=== PATIENT | male | born 1975 | race Caucasian/White ===

== ENCOUNTER 2019-10-02 03:07 | Inpatient (IN) | payer SELFPAY ==
[~2019-10-02] VITALS: Ht 190.5 cm; Wt 89.5 kg
--- NOTE | 2019-10-02 03:16 | NUR ---
PT BIB EMS. PT REPORTS TAKING 50 PILLS OF NYQUIL AT 8PM 9DEC19. PT'S MOTHER FOUND PT PASSED OUT IN THEIR KITCHEN. EMS REPORTS FINDING APPX 20 OPENED PILL PACKETS. PT REPORTS LIFE HAS BEEN HARD THIS LAST YEAR AND HE DOESN'T WANT TO DEAL WITH IT ANYMORE. REPORTS CURRENT STOMACH PAIN AND HX OF METH USE. PT'S BELONGINGS SECURED IN 1 OF 1 BAGS IN LOCKER, KNIFE REMOVED FROM PT BELONGINGS AND GIVEN TO [facility] SECURITY. PT PLACED ON ALL MONITORING, BED IN LOW POSITION, 2 RAILS RAISED.
[2019-10-02 03:27] LABS: BASOPHILS # (AUTO) 0.04 x10^3/uL (0-0.1); BASOPHILS % (AUTO) 0 % (0-1); EOSINOPHILS # (AUTO) 0.15 x10^3/uL (0-0.4); EOSINOPHILS % (AUTO) 1 % (1-7); LYMPHOCYTES # (AUTO) 4.33 x10^3/uL (1-3.4); LYMPHOCYTES % (AUTO) 40 % (22-44); MD NO; MEAN CORPUSCULAR HEMOGLOBIN 33.7 pg (27.5-34.5); MEAN CORPUSCULAR HGB CONC 33.7 g/dL (33.2-36.2); MEAN PLATELET VOLUME 7.5 fL (7.4-10.4); MONOCYTES % (AUTO) 7 % (2-9); NEUTROPHILS # (AUTO) 5.57 x10^3/uL (1.8-6.8); NEUTROPHILS % (AUTO) 52 % (42-75); PLATELET COUNT 436 x10^3/uL (130-400); RED BLOOD COUNT 4.88 x10^6/uL (4.38-5.82); RED CELL DISTRIBUTION WIDTH 13.4 % (9.4-14.8)
[2019-10-02] MEDS ORDERED: SODIUM CHLORIDE 0.9% 1,000ML IVBOLUS ONE (03:30)
[2019-10-02] MEDS ORDERED: SODIUM CHLORIDE FLUSH 10ML SYR IVF ONE (03:30)
[2019-10-02 03:37] LABS: ALANINE AMINOTRANSFERASE 41 U/L (12-78); ANION GAP 6 mmol/L (5-15); CALCIUM 8.7 mg/dL (8.5-10.1); CHLORIDE 108 mmol/L (98-107); CREATININE 1.04 mg/dL (0.7-1.3)
--- NOTE | 2019-10-02 03:39 | NUR ---
Patient refused to give details about the method of how to commit suicide. He did state, "if you want something to put down, you can say I took some pills and it didn't work." Patient states he did not want to kill himself tonight but he did not want to deal with things anymore because he can't get his life right. Patient is has slurred speech and is slow to respond. He is AAOx4.
[2019-10-02 03:40] LABS: ALKALINE PHOSPHATASE 82 U/L (45-117); BILIRUBIN,TOTAL 1.5 mg/dL (0.2-1.0); INTERNATIONAL NORMALIZED RATIO 1.08 (0.93-1.1); PROTHROMBIN TIME 11.3 Seconds (9.6-11.5); TOTAL PROTEIN 7.5 g/dL (6.4-8.2)
[2019-10-02 03:47] LABS: SALICYLATE LEVEL < 1.7 mg/dL (2.8-20.0)
[2019-10-02] MEDS ORDERED: ACETYLCYSTEINE IV ONE ×3 (04:00→09:00)
[2019-10-02] MEDS ORDERED: DEXTROSE 5% IV ONE ×3 (04:00→09:00)
[2019-10-02] MEDS ORDERED: SODIUM CHLORIDE FLUSH 10ML SYR IVF PRN (04:30)
--- NOTE | 2019-10-02 04:58 | NUR ---
Patient cooperative and receiving medication per mar.
--- NOTE | 2019-10-02 05:10 | NUR ---
Report given to PRISCILLA Borden. Second bag of Acetylcysteine sent with tranport staff to floor. Belongings with transport staff.
[2019-10-02 07:45] VITALS: BP 148/84
[2019-10-02] MEDS ORDERED: ONDANSETRON 2MG/ML, 2ML IVPush PRN (08:30)
[2019-10-02] MEDS ORDERED: morphine SULFATE 10 MG/ML, 1ML IVPush PRN (08:30)
[2019-10-02] MEDS ORDERED: hydrALAzine 20 MG/ML, 1ML IVPush PRN (08:30)
[2019-10-02] MEDS ORDERED: DOCUSATE 100 MG CAPSULE PO PRN (08:30)
[2019-10-02] MEDS ORDERED: POLYETHYLENE GLYCOL 17 GM PACKET PO PRN (08:30)
[2019-10-02] MEDS ORDERED: BISACODYL 10 MG SUPP PR PRN (08:30)
[2019-10-02] MEDS ORDERED: ONDANSETRON ODT 4 MG PO PRN (08:30)
[2019-10-02] MEDS ORDERED: OXYcodone IR 5MG TABLET PO PRN (08:30)
[2019-10-02] MEDS ORDERED: PROMETHAZINE 25 MG/ML, 1ML IM PRN (08:30)
[2019-10-02 09:49] LABS: ALBUMIN 3.6 g/dL (3.4-5.0); ANION GAP 9 mmol/L (5-15); CALCIUM 8.6 mg/dL (8.5-10.1); CHLORIDE 107 mmol/L (98-107)
[2019-10-02 09:58] LABS: ALANINE AMINOTRANSFERASE 152 U/L (12-78); ALKALINE PHOSPHATASE 76 U/L (45-117); BILIRUBIN,TOTAL 1.8 mg/dL (0.2-1.0); CREATININE 0.83 mg/dL (0.7-1.3); FREE T4 (FREE THYROXINE) 1.34 ng/dL (0.76-1.46); TOTAL PROTEIN 7.1 g/dL (6.4-8.2)
[2019-10-02 10:20] LABS: HEMOGLOBIN A1C 5.6 % (4.2-6.3)
[2019-10-02 11:13] LABS: AMPHETAMINE SCREEN, URINE Positive (Negative); BARBITURATE SCREEN, URINE Negative (Negative); BENZODIAZEPINE SCREEN, URINE Negative (Negative); CANNABINOID SCREEN, URINE Positive (Negative); COCAINE SCREEN, URINE Negative (Negative); METHADONE SCREEN, URINE Negative (Negative); OPIATE SCREEN, URINE Negative (Negative)
[2019-10-02] MEDS ORDERED: NICOTINE 14MG/24 HR PATCH.TD24 ONE (11:42)
[2019-10-02] MEDS: SODIUM CHLORIDE 0.9% 1,000 ML IV SCH (11:46)
[2019-10-02] MEDS: NICOTINE 14MG/24 HR PATCH.TD24 TD SCH (11:46)
[2019-10-02 13:28] VITALS: BP 121/79
[2019-10-02] MEDS ORDERED: QUETIAPINE 25MG TABLET PO PRN (15:00)
[2019-10-02 15:22] LABS: ALANINE AMINOTRANSFERASE 138 U/L (12-78); ANION GAP 9 mmol/L (5-15); CALCIUM 8.8 mg/dL (8.5-10.1); CHLORIDE 108 mmol/L (98-107); CREATININE 0.78 mg/dL (0.7-1.3)
[2019-10-02 15:25] LABS: ALKALINE PHOSPHATASE 85 U/L (45-117); BILIRUBIN,TOTAL 2.9 mg/dL (0.2-1.0); TOTAL PROTEIN 7.6 g/dL (6.4-8.2)
[2019-10-02 20:08] VITALS: BP 123/83
[2019-10-02] MEDS: QUETIAPINE 100MG TABLET PO SCH (22:04)
[2019-10-03 01:24] VITALS: BP 119/89
[2019-10-03] MEDS: SODIUM CHLORIDE 0.9% 1,000 ML IV SCH (03:30)
[2019-10-03 05:39] LABS: MEAN CORPUSCULAR HEMOGLOBIN 33.8 pg (27.5-34.5); MEAN CORPUSCULAR HGB CONC 33.3 g/dL (33.2-36.2); MEAN CORPUSCULAR VOLUME 101.6 fL (81-97); MEAN PLATELET VOLUME 7.5 fL (7.4-10.4); PLATELET COUNT 347 x10^3/uL (130-400); RED BLOOD COUNT 4.44 x10^6/uL (4.38-5.82); RED CELL DISTRIBUTION WIDTH 13.5 % (9.4-14.8)
[2019-10-03 05:40] LABS: ALANINE AMINOTRANSFERASE 86 U/L (12-78); ALBUMIN 3.3 g/dL (3.4-5.0); ANION GAP 5 mmol/L (5-15); CALCIUM 8.8 mg/dL (8.5-10.1); CHLORIDE 113 mmol/L (98-107); CREATININE 0.72 mg/dL (0.7-1.3)
[2019-10-03 05:47] LABS: ALKALINE PHOSPHATASE 69 U/L (45-117); BILIRUBIN,TOTAL 1.4 mg/dL (0.2-1.0); CHOL/HDL RATIO 3.5; CHOLESTEROL, TOTAL 146 mg/dL (140-239); HDL CHOL % 29 % (26-37); HDL CHOLESTEROL (DIRECT) 42 mg/dL (40-60); LDL CHOLESTEROL,CALCULATED 76 mg/dL (54-169); LDL/HDL RATIO 1.8 (0.5-3.0); TOTAL PROTEIN 6.3 g/dL (6.4-8.2); TRIGLYCERIDES 141 mg/dL (50-200); VLDL CHOLESTEROL 28 mg/dL (0-25)
[2019-10-03 06:20] LABS: BASOPHILS # (AUTO) 0.04 x10^3/uL (0-0.1); BASOPHILS % (AUTO) 1 % (0-1); EOSINOPHILS # (AUTO) 0.15 x10^3/uL (0-0.4); EOSINOPHILS % (AUTO) 2 % (1-7); LYMPHOCYTES % (AUTO) 53 % (22-44); MD SCAN; MONOCYTES # (AUTO) 0.56 x10^3/uL (0.2-0.8); MONOCYTES % (AUTO) 7 % (2-9); NEUTROPHILS # (AUTO) 2.99 x10^3/uL (1.8-6.8); NEUTROPHILS % (AUTO) 38 % (42-75)
[2019-10-03 09:31] VITALS: BP 102/58
[2019-10-03] MEDS: NICOTINE 14MG/24 HR PATCH.TD24 TD SCH (11:47)
[2019-10-03 14:57] VITALS: BP 130/81
[2019-10-03 16:11] LABS: PROTHROMBIN TIME 10.5 Seconds (9.6-11.5)
[2019-10-03 16:13] LABS: ALBUMIN 3.7 g/dL (3.4-5.0)
[2019-10-03 16:16] LABS: ALANINE AMINOTRANSFERASE 74 U/L (12-78); ALKALINE PHOSPHATASE 77 U/L (45-117); BILIRUBIN, DIRECT 0.2 mg/dL (0.1-0.2); BILIRUBIN,TOTAL 1.2 mg/dL (0.2-1.0); TOTAL PROTEIN 6.8 g/dL (6.4-8.2)
[2019-10-03 20:43] VITALS: BP 124/80
[2019-10-03] MEDS: QUETIAPINE 100MG TABLET PO SCH (20:51)
[2019-10-04 00:41] VITALS: BP 120/80
[2019-10-04 06:52] VITALS: BP 104/67
[2019-10-04] MEDS: NICOTINE 14MG/24 HR PATCH.TD24 TD SCH (12:37)
[2019-10-04 15:16] VITALS: BP 132/81
[2019-10-04] MEDS ORDERED: KETOROLAC 30 MG/1 ML IVPush PRN (16:00)
[2019-10-04] MEDS ORDERED: morphine SULFATE 10 MG/ML, 1ML IVPush PRN (16:00)
[2019-10-04] MEDS ORDERED: OMNIPAQUE 350 MG/ML, 100ML BOTTLE ONE (16:55)
[2019-10-04 20:47] VITALS: BP 130/72
[2019-10-04] MEDS: QUETIAPINE 100MG TABLET PO SCH (20:50)
[2019-10-05 03:17] VITALS: BP 132/72
[2019-10-05 11:01] VITALS: BP 117/71
[2019-10-05] MEDS: NICOTINE 14MG/24 HR PATCH.TD24 TD SCH (11:43)
[2019-10-05 12:16] VITALS: BP 118/73
[2019-10-05] MEDS ORDERED: QUET100T4 PO (15:11)
== END 2019-10-05 16:40 | disposition home or self-care (01) | DRG 918 ==
LOC: ED 03:11 → EDIP 04:24 → 4WST 05:23 → DCLOUNGE 10-05 16:34
PROVIDERS: ADMIT Internal Medicine; ATTEND Internal Medicine
DX: T39.1X2A Poisoning by 4-Aminophenol derivatives, intentional self-harm, initial encounter (principal); R17 Unspecified jaundice; F12.10 Cannabis abuse, uncomplicated; F15.10 Other stimulant abuse, uncomplicated; F17.210 Nicotine dependence, cigarettes, uncomplicated; F22 Delusional disorders; F32.9 Major depressive disorder, single episode, unspecified; F41.0 Panic disorder [episodic paroxysmal anxiety]; Z59.0 Homelessness; Y92.89 Other specified places as the place of occurrence of the external cause
CPT/HCPCS: 36415; 74177; 80053; 80061; 80076; 80307; 83036; 83735; 84100; 84439; 84443; 85025; 85610; 85730; 93005; 96365; G0378; J0132; J1885; J7060; J7070; Q9967; J2270; J7030